=== PATIENT | female | born 1970 | race Hispanic/Latino ===

== ENCOUNTER 2018-12-24 22:02 | Emergency (ER) | payer SELFPAY ==
--- NOTE | 2018-12-24 23:47 | ER ---
Nurse's Notes [facility] Name: Shital Quintanilla Age: 48 yrs Sex: Female : 1970 Arrival Date: 12/24/2018 Time: 22:07 Bed 4 Private MD: Diagnosis: Fracture of nasal bones;Contusion of unspecified part of head;Concussion with loss of consciousness of 30 minutes or less Presentation: 12/24 22:08 Presenting complaint: EMS states: Pt reports she slipped on wet floor and hit her face ea on the floor. Pt denied LOC reported she passed out after she was assisted to stretcher. EMS reported laceration to nose bridge, and deviation to the left. BP 120/80, HR: 80, O2 sats 97% room air. Care prior to arrival: None. Mechanism of Injury: Fall from standing position. Trauma event details: Injury occurred in the [facility], Injury occurred: at home. Injury occurred: December 24, 2018 Injury occurred at: 22:15. 22:08 Acuity: CATY 3 ea 22:08 Method Of Arrival: EMS: [facility] ea 22:19 Transition of care: patient was not received from another setting of care. Onset of ea symptoms was December 24, 2018. Risk Assessment: Do you want to hurt yourself or someone else? Patient reports no desire to harm self or others. Initial Sepsis Screen: Does the patient meet any 2 criteria? No. Patient's initial sepsis screen is negative. Does the patient have a suspected source of infection? No. Patient's initial sepsis screen is negative. Triage Assessment: 22:18 General: Appears uncomfortable, Behavior is calm, cooperative, appropriate for age. ea Pain: Complains of pain in nose. EENT: laceration to top of nose. Neuro: Level of Consciousness is awake, alert, obeys commands, Oriented to person, place, time, situation. Cardiovascular: Patient's skin is warm and dry. Respiratory: Airway is patent Respiratory effort is even, unlabored, Respiratory pattern is regular, symmetrical. Derm: Skin is pink, warm \T\ dry. Trauma Activation: Not Applicable Physician: ED Physician; Name: ; Notified At: ; Arrived At: Physician: General Surgeon; Name: ; Notified At: ; Arrived At: Physician: Radiology; Name: ; Notified At: ; Arrived At: Physician: Respiratory; Name: ; Notified At: ; Arrived At: Physician: Lab; Name: ; Notified At: ; Arrived At: Historical: - Allergies: 23:41 No Known Allergies; ak1 - Home Meds: 23:41 None [Active]; ak1 - PMHx: 23:41 None; ak1 - PSHx: 23:41 None; ak1 - Immunization history:: Adult Immunizations up to date. - Social history:: Smoking status: Patient/guardian denies using tobacco. - Immunization history: Last tetanus immunization: unknown. - Ebola Screening: : No symptoms or risks identified at this time. Screenin:10 Abuse screen: Denies threats or abuse. Denies injuries from another. Nutritional rr5 screening: No deficits noted. Tuberculosis screening: No symptoms or risk factors identified. Fall Risk Fall in past 12 months (25 points). IV access (20 points). Mental Status- Oriented to own ability (0 pts). Total Kwong Fall Scale indicates High Risk Score (45 or more points). Fall prevention measures have been instituted. Side Rails Up X 2 Placed Close to Nursing Station Frequent Obs/Assessments Occuring As available patient and family educated on Fall Prevention Program and Strategies. Primary Survey: 22:00 NO uncontrolled hemorrhage observed. A: The patient is alert. Airway: patent, No rr5 supplemental oxygen in use on arrival. Oral cavity: clear, gag reflex present, Trachea midline. Breathing/Chest: Respiratory pattern: regular, Respiratory effort: spontaneous, unlabored, Breath sounds: clear, bilaterally. Chest inspection: symmetrical rise and fall of the chest. Circulation: Heart tones present. Pulses: palpable right radial artery and left radial artery. Skin color: pink, Skin temperature: warm. Disability Alert. Exposure/Environment: There is no evidence of uncontrolled external bleeding. Obvious injury(ies) are noted at this time: cut wound at nose bridge. 23:47 Reassessment Airway Airway Patent Breathing/Chest Respiratory pattern Regular ak1 Respiratory effort Spontaneous Unlabored. Secondary Survey: 22:00 HEENT: Head No injury/deformity Face No injury/deformity Eyes: No injury or deformity rr5 noted. Ears: clear Nose: cut wound nose bridge swelling noted. Throat: is clear with gag reflex present. Gastrointestinal: No deficits noted. : No deficits noted. Musculoskeletal: No signs and/or symptoms reported regarding the musculoskeletal system. Assessment: 22:00 General: Appears in no apparent distress. comfortable, Behavior is calm, cooperative, rr5 appropriate for age. Pain: Complains of pain in nose Pain does not radiate. Pain currently is 8 out of 10 on a pain scale. Quality of pain is described as aching, Pain began suddenly, Is intermittent. Neuro: Level of Consciousness is awake, alert, obeys commands, Oriented to person, place, time, situation, Appropriate for age Sales Lead are equal bilaterally Moves all extremities. Full function Speech is normal, Pupils are PERRLA, Reports LOC after she saw the blood.. Cardiovascular: Capillary refill < 3 seconds Patient's skin is warm and dry. Respiratory: Airway is patent Respiratory effort is even, labored, Respiratory pattern is regular, symmetrical. GI: No signs and/or symptoms were reported involving the gastrointestinal system. : No signs and/or symptoms were reported regarding the genitourinary system. EENT: swelling and cut wound at nose bridge.. Derm: Wound noted nose Wound is cut wound and swelling. Musculoskeletal: Circulation, motion, and sensation intact. Capillary refill < 3 seconds. 22:45 Reassessment: pt returned from CT informed of NPO until CT results. ak1 23:58 Reassessment: steri strips applied to bridge of nose. pt verbalized understanding of ak1 care of wound with steri strips. Vital Signs: 22:16 BP 136 / 86; Pulse 83; Resp 18; Temp 98.6; Pulse Ox 98% on R/A; Weight 50.8 kg; Height ea 4 ft. 11 in. (149.86 cm); 23:29 BP 116 / 79; Pulse 84; Resp 16; Pulse Ox 100% on R/A; ak1 22:16 Body Mass Index 22.62 (50.80 kg, 149.86 cm) ea Ansley Coma Score: 22:00 Eye Response: spontaneous(4). Verbal Response: oriented(5). Motor Response: obeys rr5 commands(6). Total: 15. Trauma Score (Adult): 22:00 Eye Response: spontaneous(1); Verbal Response: oriented(1); Motor Response: obeys rr5 commands(2); Systolic BP: > 89 mm Hg(4); Respiratory Rate: 10 to 29 per min(4); Holden Score: 15; Trauma Score: 12 ED Course: 22:07 Patient arrived in ED. ea 22:07 Juan Manuel Woodruff, RN is Primary Nurse. rr5 22:08 Zaki Rivera MD is Attending Physician. tw4 22:14 Patient has correct armband on for positive identification. Bed in low position. Call rr5 light in reach. 22:15 Triage completed. ea 22:16 Pulse ox on. NIBP on. rr5 22:17 Arm band placed on right wrist. Patient placed in an exam room, on a stretcher, on ea pulse oximetry. 22:17 Patient maintains SpO2 saturation greater than 95% on room air. Thermoregulation: warm ea blanket given to patient. 22:36 CT completed. Patient tolerated procedure well. Patient moved back from CT. mw3 22:44 Maxillofacial Wo Con In Process Unspecified. EDMS 22:45 CT Head C Spine: no contrast!!! In Process Unspecified. EDMS 23:30 Assist provider with laceration repair on nose that was 2.5 cm. or less using rr5 Steri-strips. Set up tray. Performed by Zaki Rivera MD Patient tolerated well. 23:47 No provider procedures requiring assistance completed. Patient did not have IV access ak1 during this emergency room visit. Administered Medications: 23:57 Drug: Ibuprofen 600 mg Route: PO; ak1 23:58 Follow up: Response: No adverse reaction; Medication administered at discharge. ak1 Intake: 23:47 PO: 0ml; Total: 0ml. ak1 Outcome: 23:46 Discharge ordered by MD. tw4 23:47 Condition: stable ak1 23:58 Discharged to home ambulatory. ak1 23:58 Discharge instructions given to patient, Instructed on discharge instructions, follow up and referral plans. medication usage, wound care, Demonstrated understanding of instructions, follow-up care, medications, wound care, Prescriptions given X 1. 12/25 00:00 Patient's length of stay was not longer than 2 hours. rr5 00:11 Patient left the ED. ak1 Signatures: Dispatcher [employer] EDMS Kandi Chacon RN RN ak1 Gayle Rajan RN RN ea Wadley, Terrence, MD MD tw4 Sarah Cueto mw3 Juan Manuel Woodruff, RN RN rr5
--- NOTE | 2018-12-24 23:48 | EDPHYS ---
Physician Documentation [facility] Name: Shital Quintanilla Age: 48 yrs Sex: Female : 1970 Arrival Date: 12/24/2018 Time: 22:07 Bed 4 Private MD: ED Physician Zaki Rivera HPI: 12/25 04:33 This 48 yrs old Female presents to ER via EMS with complaints of Fall Injury. tw4 04:33 Details of fall: The patient fell from an upright position, while standing. Onset: The tw4 symptoms/episode began/occurred today. Associated injuries: The patient sustained injury to the head, contusion, deformity, hematoma. Associated injuries: The patient sustained injury to the head, +LOC. Severity of symptoms: At their worst the symptoms were moderate, in the emergency department the symptoms have resolved. The patient has not experienced similar symptoms in the past. Historical: - Allergies: 12/24 23:41 No Known Allergies; ak1 - Home Meds: 23:41 None [Active]; ak1 - PMHx: 23:41 None; ak1 - PSHx: 23:41 None; ak1 - Immunization history:: Adult Immunizations up to date. - Social history:: Smoking status: Patient/guardian denies using tobacco. - Immunization history: Last tetanus immunization: unknown. - Ebola Screening: : No symptoms or risks identified at this time. ROS: 12/25 04:33 Constitutional: Negative for fever, chills, and weight loss, Eyes: Negative for injury, tw4 pain, redness, and discharge, Cardiovascular: Negative for chest pain, palpitations, and edema, Respiratory: Negative for shortness of breath, cough, wheezing, and pleuritic chest pain, Abdomen/GI: Negative for abdominal pain, nausea, vomiting, diarrhea, and constipation, Back: Negative for injury and pain, MS/Extremity: Negative for injury and deformity, Neuro: Negative for headache, weakness, numbness, tingling, and seizure. Exam: 04:33 Constitutional: This is a well developed, well nourished patient who is awake, alert, tw4 and in no acute distress. Head/Face: Normocephalic, atraumatic. Chest/axilla: Normal chest wall appearance and motion. Nontender with no deformity. No lesions are appreciated. Cardiovascular: Regular rate and rhythm with a normal S1 and S2. No gallops, murmurs, or rubs. Normal PMI, no JVD. No pulse deficits. Respiratory: Lungs have equal breath sounds bilaterally, clear to auscultation and percussion. No rales, rhonchi or wheezes noted. No increased work of breathing, no retractions or nasal flaring. Abdomen/GI: Soft, non-tender, with normal bowel sounds. No distension or tympany. No guarding or rebound. No evidence of tenderness throughout. Skin: Warm, dry with normal turgor. Normal color with no rashes, no lesions, and no evidence of cellulitis. MS/ Extremity: Pulses equal, no cyanosis. Neurovascular intact. Full, normal range of motion. Vital Signs: 12/24 22:16 BP 136 / 86; Pulse 83; Resp 18; Temp 98.6; Pulse Ox 98% on R/A; Weight 50.8 kg; Height ea 4 ft. 11 in. (149.86 cm); 23:29 BP 116 / 79; Pulse 84; Resp 16; Pulse Ox 100% on R/A; ak1 22:16 Body Mass Index 22.62 (50.80 kg, 149.86 cm) ea Peebles Coma Score: 22:00 Eye Response: spontaneous(4). Verbal Response: oriented(5). Motor Response: obeys rr5 commands(6). Total: 15. Trauma Score (Adult): 22:00 Eye Response: spontaneous(1); Verbal Response: oriented(1); Motor Response: obeys rr5 commands(2); Systolic BP: > 89 mm Hg(4); Respiratory Rate: 10 to 29 per min(4); Peebles Score: 15; Trauma Score: 12 Laceration: 12/25 04:33 Wound Repair of 4cm ( 1.6in ) subcutaneous laceration to nose. Linear shaped.. Distal tw4 neuro/vascular/tendon intact. Wound prep: Simple cleansing with hibiclenz by nurse. Skin closed with 4 1-0 Adhesive skin closure using simple sutures and sterile technique. Patient tolerated well. MDM: 12/24 22:08 Patient medically screened. tw4 12/25 04:33 Differential diagnosis: abrasion, closed head injury, contusion. Data reviewed: vital tw4 signs, nurses notes. Counseling: I had a detailed discussion with the patient and/or guardian regarding: the historical points, exam findings, and any diagnostic results supporting the discharge/admit diagnosis. Special discussion: Based on the patient's history, exam and DX evaluation, there is no indication for emergent intervention or inpatient TX. It is understood by the patient/guardian that if the SXs persist or worsen they need to return immediately for re-evaluation. 04:33 Data interpreted: Pulse oximetry: Interpretation: normal. ED course: CT head negative. tw4 CT maxillofacial reveal nasal bone fracture. 12/24 22:16 Order name: CT Head C Spine: no contrast!!! tw4 12/24 22:26 Order name: Maxillofacial Wo Con EDMS Administered Medications: 12/24 23:57 Drug: Ibuprofen 600 mg Route: PO; ak1 23:58 Follow up: Response: No adverse reaction; Medication administered at discharge. ak1 Disposition: 12/24/18 23:46 Discharged to Home. Impression: Fracture of nasal bones, Contusion of unspecified part of head, Concussion with loss of consciousness of 30 minutes or less. - Condition is Stable. - Discharge Instructions: Head Injury, Adult, Facial Laceration, Nasal Fracture. - Prescriptions for Ibuprofen 800 mg Oral Tablet - take 1 tablet by ORAL route every 12 hours As needed take with food; 20 tablet. - Medication Reconciliation Form, Thank You Letter, Antibiotic Education, Prescription Opioid Use, Work release form form. - Follow up: Private Physician; Reason: If symptoms return, Recheck today's complaints, Continuance of care. - Problem is new. - Symptoms have improved. Signatures: Dispatcher [employer] [facility] Kandi Chacon RN RN ak1 Gayle Rajan RN RN ea Wadley, Terrence, MD MD tw4 Corrections: (The following items were deleted from the chart) 22:26 22:17 Maxillofacial W/Wo+CT.RAD.BRZ ordered. [facility] 12/25 00:11 12/24 23:46 12/24/2018 23:46 Discharged to Home. Impression: Fracture of nasal bones; ak1 Contusion of unspecified part of head; Concussion with loss of consciousness of 30 minutes or less. Condition is Stable. Forms are Medication Reconciliation Form, Thank You Letter, Antibiotic Education, Prescription Opioid Use. Follow up: Private Physician; Reason: If symptoms return, Recheck today's complaints, Continuance of care. Problem is new. Symptoms have improved. tw4
[2018-12-24] MEDS ORDERED: IBUPROFEN 200 MG TAB PO ONE (23:51)
--- NOTE | 2018-12-25 09:23 | RAD REPORT ---
EXAM DESCRIPTION: CT - Maxillofacial Wo Dipak - 12/25/2018 1:03 am CLINICAL HISTORY: The patient is 48 years old and is Female; DEFORMITY TECHNIQUE: Axial computed tomography images of the face without intravenous contrast. Sagittal and coronal reformatted images were created and reviewed. This CT exam was performed using one or more of the following dose reduction techniques: automated exposure control, adjustment of the mA and/o r kV according to patient size, and/or use of iterative reconstruction technique. COMPARISON: No relevant prior studies available. FINDINGS: BONES/JOINTS: Nasal bone fracture is present. The orbital floors and duron are intact. The zygomatic arches and pterygoid plates are intact. The visualized maxilla and mandible are in tact. SOFT TISSUES: Unremarkable. ORBITS: The globes, extraocular muscles, and optic nerve complexes are within normal limits. SINUSES: Mucoperiosteal thickening in the left maxillary sinus is present. The visualized para nasal sinuses are clear. No air-fluid levels. IMPRESSION: Left nasal bone fracture. Electronically signed by: Adriana Green MD 12/24/2018 11:15 PM CDT Due to temporary technical issues with the PACS/Fluency reporting system, reports are being signed by the in house radiologist as a courtesy to ensure prompt reporting. The interpreting radiologist is f ully responsible for the content of the report.
--- NOTE | 2018-12-25 09:24 | RAD REPORT ---
EXAM DESCRIPTION: CT - Head C Spine Mpr Wo Con - 12/25/2018 1:04 am CLINICAL HISTORY: The patient is 48 years old and is Female; fall TECHNIQUE: Axial computed tomography images of the head/brain and cervical spine without intravenous contrast. Sagittal and coronal reformatted images were created and reviewed. This CT exam was pe rformed using one or more of the following dose reduction techniques: automated exposure control, a djustment of the mA and/or kV according to patient size, and/or use of iterative reconstruction techn ique. COMPARISON: No relevant prior studies available. FINDINGS: BRAIN: Unremarkable. No hemorrhage. No significant white matter disease. No edema. VENTRICLES: Unremarkable. No ventriculomegaly. SKULL: No acute fracture. SINUSES: Unremarkable as visualized. No acute sinusitis. MASTOID AIR CELLS: Unremarkable as visualized. No mastoid effusion. VERTEBRAE: The vertebral body heights and alignment are maintained. No acute fracture. DISCS/SPINAL CANAL/NEURAL FORAMINA: Minimal intervertebral disc space narrowing at C3-C4 with os teophyte formation is present. Remaining intervertebral disc spaces are maintained. SOFT TISSUES: The soft tissues are normal. LUNG APICES: The lung apices are clear. IMPRESSION: 1. No acute intracranial findings. 2. No fracture or malalignment of the cervical spine. Electronically signed by: Adriana Green MD 12/24/2018 11:19 PM CDT Due to temporary technical issues with the PACS/Fluency reporting system, reports are being signed by the in house radiologist as a courtesy to ensure prompt reporting. The interpreting radiologist is f ully responsible for the content of the report.
== END 2018-12-25 00:11 | disposition home or self-care (01) ==
LOC: ER 22:02
PROC: 0JQ10ZZ Repair Face Subcutaneous Tissue and Fascia, Open Approach (ICD-10-PCS; principal; 2018-12-25)
DX: S02.2XXA Fracture of nasal bones, initial encounter for closed fracture (principal); S01.21XA Laceration without foreign body of nose, initial encounter; S06.0X1A Concussion with loss of consciousness of 30 minutes or less, initial encounter; S00.93XA Contusion of unspecified part of head, initial encounter; W19.XXXA Unspecified fall, initial encounter; Y93.89 Activity, other specified; Y92.9 Unspecified place or not applicable
CPT/HCPCS: 70450; 70486; 72125; 99285